=== PATIENT | male | born 1950 | race African-American/Black ===

== ENCOUNTER 2017-01-07 11:03 | Emergency (ER) | payer SELFPAY ==
[~2017-01-07] VITALS: Ht 182.9 cm; Wt 104.0 kg
[2017-01-07 11:36] VITALS: BP 133/78
== END 2017-01-07 16:01 | disposition left against medical advice (07) ==
LOC: ER 11:19
DX: M54.9 Dorsalgia, unspecified (principal); W19.XXXA Unspecified fall, initial encounter; Y93.89 Activity, other specified; Y92.89 Other specified places as the place of occurrence of the external cause; Y99.8 Other external cause status
CPT/HCPCS: 70450; 72125; 72131; 99284; Z7610

== ENCOUNTER 2017-01-07 16:51 | Emergency (ER) | payer SELFPAY ==
[~2017-01-07] VITALS: Ht 185.4 cm; Wt 104.0 kg
[2017-01-07] MEDS ORDERED: ACETAMINOPHEN WITH CODEINE 300/30MG TABLET PO STA (17:24)
[2017-01-07 18:12] LABS: CHLORIDE 102 mEq/L (98-107)
[2017-01-07 18:13] LABS: PROTHROMBIN TIME 10.8 sec
[2017-01-07 18:17] LABS: BASOPHILS % 0.8 % (0.0-2.0); EOSINOPHILS % 1.3 % (0.0-5.0); HEMATOCRIT. 41.5 % (42.0-52.0); HEMOGLOBIN. 14.1 g/dL (14.0-18.0); LYMPHOCYTES % 26.8 % (20.0-50.0); MEAN CORPUSCULAR HEMOGLOBIN 31.5 pg (28.0-32.0); MEAN CORPUSCULAR VOLUME 92.5 fL (80.0-94.0); MEAN PLATELET VOLUME 7.4 fl (7.4-10.4); MONOCYTES % 6.7 % (2.0-8.0); NEUTROPHILS % 64.4 % (40.0-76.0); PLATELET 308 x1000/uL (130-400); RED BLOOD CELL COUNT 4.48 mill/uL (4.7-6.1)
[2017-01-07 18:20] LABS: CARBON DIOXIDE 29 mEq/L (21-32)
[2017-01-07 18:27] VITALS: BP 135/86
== END 2017-01-07 19:09 | disposition home or self-care (01) ==
LOC: ER 17:41
DX: S20.229A Contusion of unspecified back wall of thorax, initial encounter (principal); V89.2XXA Person injured in unspecified motor-vehicle accident, traffic, initial encounter; Y93.89 Activity, other specified; Y92.89 Other specified places as the place of occurrence of the external cause; Y99.8 Other external cause status
CPT/HCPCS: 36415; 71010; 80053; 85025; 85610; 93005; 99285